=== PATIENT | female | born 1995 | race Native Hawaiian/Other Pacific Islander ===

== ENCOUNTER 2018-03-29 19:23 | Emergency (ER) | payer MEDICAID ==
[2018-03-29 20:16] LABS: Basophils % (Auto) 0.4 % (0.0-1.8); Eosinophils # (Auto) 0.3 K/mm3 (0.0-0.4); Hematocrit 37.1 % (30.3-42.9); Hemoglobin 12.4 gm/dl (10.1-14.3); Lymphocytes # (Auto) 1.9 K/mm3 (1.2-5.4); Lymphocytes % (Auto) 19.5 % (13.4-35.0); Mean Corpuscular HGB Conc 33 % (30-34); Mean Corpuscular Hemoglobin 31 pg (28-32); Mean Corpuscular Volume 92 fl (79-97); Monocytes # (Auto) 0.7 K/mm3 (0.0-0.8); Monocytes % (Auto) 7.4 % (0.0-7.3); Platelet Count 218 K/mm3 (140-440); Red Blood Count 4.02 M/mm3 (3.65-5.03); Red Cell Distribution Width 13.9 % (13.2-15.2)
[2018-03-29 20:34] LABS: Alanine Aminotransferase 10 units/L (7-56); BUN/Creatinine Ratio 23; Blood Urea Nitrogen 9 mg/dL (7-17); Hemolysis Index 3
[2018-03-29 20:54] LABS: HCG Qualitative,Urine Positive (Negative)
[2018-03-29 20:56] LABS: Bilirubin,Urine NEG (Negative); Blood,Urine NEG (Negative); Color,Urine Yellow (Yellow); Mucus,Urine 3+ /HPF; Renal Epithelial Cells,Urine 1 /LPF; Urobilinogen,Urine < 2.0 mg/dL (<2.0)
[2018-03-30] MEDS ORDERED: MACROBID PO ONE (04:12)
--- NOTE | 2018-03-30 04:17 | Emergency Department Report ---
ED General Adult HPI - General Chief complaint: Weakness Stated complaint: SOB Time Seen by Provider: 03/30/18 02:34 Source: patient Mode of arrival: Ambulatory Limitations: No Limitations - History of Present Illness Initial comments: Previously healthy 22-year-old woman presents with 1-2 week history of multiple complaints, but primarily fatigue, nausea and vomiting, lack of active tight, occasional difficulty breathing. She is felt like she's had an internal fever, but has no focal source of illness, including no sore throat, no upper respiratory symptoms, no cough or congestion, no abdominal pain, no nausea or vomiting, no diarrhea, and no dysuria. She reports that she has irregular menstrual cycle, and it does not concern her that her last period was 5 months ago. She also uses contraception, but also reports that she has not been sexually active over the past 5-7 months, and does not feel that is possible that she could be . He's been in good general health otherwise, and has no other additional symptoms. - Related Data Home Medications Medication Instructions Recorded Confirmed Last Taken Sertraline [Zoloft] 50 mg PO QDAY 01/07/18 01/07/18 Unknown hydrOXYzine PAMOATE [Vistaril] 25 mg PO Q6HR PRN 01/07/18 01/07/18 Unknown Previous Rx's Medication Instructions Recorded Last Taken Type levETIRAcetam [Keppra TAB] 750 mg PO BID #60 tablet 01/10/18 Unknown Rx Nitrofurantoin Monohyd/M-Cryst 100 mg PO BID #14 capsule 03/30/18 Unknown Rx [Macrobid 100 mg Capsule] Allergies Allergy/AdvReac Type Severity Reaction Status Date / Time latex Allergy Rash Verified 03/29/18 19:53 ED Review of Systems ROS: Stated complaint: SOB Other details as noted in HPI ED Past Medical Hx - Past Medical History Hx Congestive Heart Failure: No Hx Diabetes: No Hx Seizures: Yes (distant history, long period without seizures, no current seizure medicatio) Hx Psychiatric Treatment: Yes (anxiety) Hx Asthma: No Hx COPD: No Additional medical history: irregular heartbeat - Surgical History Past Surgical History?: No - Social History Smoking Status: Never Smoker Substance Use Type: None - Medications Home Medications: Home Medications Medication Instructions Recorded Confirmed Last Taken Type Sertraline [Zoloft] 50 mg PO QDAY 01/07/18 01/07/18 Unknown History hydrOXYzine PAMOATE [Vistaril] 25 mg PO Q6HR PRN 01/07/18 01/07/18 Unknown History levETIRAcetam [Keppra TAB] 750 mg PO BID #60 tablet 01/10/18 Unknown Rx Nitrofurantoin Monohyd/M-Cryst 100 mg PO BID #14 capsule 03/30/18 Unknown Rx [Macrobid 100 mg Capsule] ED Physical Exam - General Limitations: No Limitations ED Course Vital Signs 03/29/18 03/30/18 19:53 01:48 Temperature 37.1 C Pulse Rate 67 Respiratory 16 18 Rate Blood Pressure 95/51 O2 Sat by Pulse 100 99 Oximetry ED Medical Decision Making - Lab Data Result diagrams: 03/29/18 20:08 03/29/18 20:08 - Medical Decision Making Patient has urinary tract infection, but she also has a positive test , this by reporting that she is not sexually active, and could not possibly be , but does not feel that she is . Although serum test and transvaginal ultrasound could resolve this, patient declined both test , prefers to leave, will accept treatment for urinary tract infection, but will have follow-up examination with her physician in the next few days. Although I recommended patient stay, that she have definitive testing, she is clinically stable, and she is clinically calm, and can refuse additional testing , and can make her own arrangements for confirmation elsewhere. 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 Critical Care Time: No Critical care attestation.: If time is entered above; I have spent that time in minutes in the direct care of this critically ill patient, excluding procedure time. ED Disposition Clinical Impression: Positive test Urinary tract infection Qualifiers: Urinary tract infection type: acute cystitis Hematuria presence: without hematuria Qualified Code(s): N30.00 - Acute cystitis without hematuria Disposition: TO HOME OR SELFCARE Is pt being admited?: No Does the pt Need Aspirin: No Condition: Stable Instructions: Urinary Tract Infection in Women (ED) Additional Instructions: Your test was positive today, and recommended that you have ultrasound examination to confirm whether there is indeed a or not. Serum blood tests and ultrasound were recommended here, but she declined both of these, which were stable, and can have follow-up evaluation at her sawmill manager office. We recommended she make contact with your doctor in the next day or 2, and have rapid follow-up examination for this. You also had a urinary tract infection, we'll treat with Macrobid, which she should take twice daily for the next week. Prescriptions: Nitrofurantoin Monohyd/M-Cryst [Macrobid 100 mg Capsule] 100 mg PO BID #14 capsule Referrals: PRIMARY CARE, [Primary Care Provider] - 3-5 Days Time of Disposition: 04:17
[2018-03-30 04:29] VITALS: BP 106/55
== END 2018-03-30 04:28 | disposition home or self-care (01) ==
LOC: ED 19:23
DX: O23.42 Unspecified infection of urinary tract in pregnancy, second trimester (principal); O99.342 Other mental disorders complicating pregnancy, second trimester; F41.9 Anxiety disorder, unspecified; Z3A.20 20 weeks gestation of pregnancy; Z91.040 Latex allergy status
CPT/HCPCS: 36415; 80048; 80053; 81001; 81025; 85025; 93005; 93010; 99284

== ENCOUNTER 2018-11-21 17:44 | Emergency (ER) | payer MEDICAID ==
[2018-11-21 17:56] VITALS: BP 118/80
--- NOTE | 2018-11-21 18:01 | Emergency Department Report ---
Chief Complaint: Seizure Stated Complaint: POSSIBLE SEIZURE Time Seen by Provider: 11/21/18 17:55 - HPI History of Present Illness: This is a 22 y.o. female that presents to ED after a seizure 1 hour ago. - ROS Review of Systems: Denies complaints - Exam Vital Signs: Vital Signs 11/21/18 17:54 Temperature 97.5 F L Pulse Rate 98 H Respiratory 18 Rate Blood Pressure 118/80 O2 Sat by Pulse 100 Oximetry MSE screening note: Focused history and physical exam performed. Due to findings the following was ordered: labs ordered, glucose 68 Fast track for further evaluation. ED Disposition for MSE Condition: Stable
[2018-11-21 18:45] LABS: Hematocrit 38.6 % (30.3-42.9); Hemoglobin 12.8 gm/dl (10.1-14.3); Mean Corpuscular HGB Conc 33 % (30-34); Mean Corpuscular Volume 91 fl (79-97); Platelet Count 259 K/mm3 (140-440); Red Blood Count 4.26 M/mm3 (3.65-5.03); Red Cell Distribution Width 14.6 % (13.2-15.2)
[2018-11-21 19:01] LABS: BUN/Creatinine Ratio 23; Blood Urea Nitrogen 14 mg/dL (7-17); Hemolysis Index 4
--- NOTE | 2018-11-21 20:49 | Emergency Department Report ---
ED Seizure HPI - General Chief Complaint: Seizure Stated Complaint: POSSIBLE SEIZURE Time Seen by Provider: 11/21/18 17:55 Source: patient Mode of arrival: Ambulatory Limitations: No Limitations - History of Present Illness Initial Comments: 22-year-old female with a history of seizure disorder states she is not on medication for about a week. Patient states today she was at the park running and thinks she had a seizure episode. Patient's immunization and she was sitting on the bandage. Patient did not have any bruising trauma injuries. Patient denies chest pain shortness of breath headache or any symptoms. MD Complaint: possible seizure -: hour(s) Description of Episode: other (patient is unsure if she had a seizure episode or not) -: second(s) Witnessed:: No Trauma: No Seizure History: known seizure disorder, other (ran out of medication a week ago) Place: street/outdoors (she states she was walking in a park and then shortly after that she was sitting on the bench) Possible Precipitating Event: none Associated Symptoms: denies: chest pain, confusion, cough, fever/chills, loss of appetite, rash, shortness of breath, syncope, shoulder dislocation Treatments Prior to Arrival: none - Related Data Home Medications Medication Instructions Recorded Confirmed Last Taken Sertraline [Zoloft] 50 mg PO QDAY 01/07/18 01/07/18 Unknown hydrOXYzine PAMOATE [Vistaril] 25 mg PO Q6HR PRN 01/07/18 01/07/18 Unknown Previous Rx's Medication Instructions Recorded Last Taken Type Nitrofurantoin Monohyd/M-Cryst 100 mg PO BID #14 capsule 03/30/18 Unknown Rx [Macrobid 100 mg Capsule] levETIRAcetam [Keppra TAB] 750 mg PO BID #60 tablet 11/21/18 Unknown Rx Allergies Allergy/AdvReac Type Severity Reaction Status Date / Time latex Allergy Rash Verified 03/29/18 19:53 ED Review of Systems ROS: Stated complaint: POSSIBLE SEIZURE Other details as noted in HPI Comment: All other systems reviewed and negative ED Past Medical Hx - Past Medical History Hx Congestive Heart Failure: No Hx Diabetes: No Hx Seizures: Yes (distant history, long period without seizures, no current seizure medicatio) Hx Psychiatric Treatment: Yes (anxiety) Hx Asthma: No Hx COPD: No Additional medical history: irregular heartbeat - Surgical History Past Surgical History?: No - Social History Smoking Status: Never Smoker Substance Use Type: None - Medications Home Medications: Home Medications Medication Instructions Recorded Confirmed Last Taken Type Sertraline [Zoloft] 50 mg PO QDAY 01/07/18 01/07/18 Unknown History hydrOXYzine PAMOATE [Vistaril] 25 mg PO Q6HR PRN 01/07/18 01/07/18 Unknown History Nitrofurantoin Monohyd/M-Cryst 100 mg PO BID #14 capsule 03/30/18 Unknown Rx [Macrobid 100 mg Capsule] levETIRAcetam [Keppra TAB] 750 mg PO BID #60 tablet 11/21/18 Unknown Rx ED Physical Exam - General Limitations: No Limitations General appearance: alert, in no apparent distress - Head Head exam: Present: atraumatic, normocephalic - Eye Eye exam: Present: normal appearance, PERRL Pupils: Present: normal accommodation - ENT ENT exam: Present: mucous membranes moist - Neck Neck exam: Present: normal inspection, full ROM. Absent: tenderness, lymphadenopathy - Respiratory Respiratory exam: Present: normal lung sounds bilaterally. Absent: respiratory distress, wheezes - Cardiovascular Cardiovascular Exam: Present: regular rate, normal rhythm. Absent: systolic murmur, diastolic murmur, rubs, gallop - GI/Abdominal GI/Abdominal exam: Present: soft, normal bowel sounds. Absent: distended, tenderness, guarding - Extremities Exam Extremities exam: Present: normal inspection - Back Exam Back exam: Present: normal inspection, full ROM. Absent: tenderness, CVA tenderness (R), CVA tenderness (L) - Neurological Exam Neurological exam: Present: alert, oriented X3, CN II-XII intact, normal gait - Expanded Neurological Exam Expanded Patient oriented to: Present: person, place, time Speech: Present: fluid speech Cranial nerves: Facial Sensation: Normal Cerebellar function: Finger to Nose: Normal, Heel to [place]: Normal Sensory exam: Upper Extremity Light Touch: Normal, Lower Extremity Light Touch: Normal Motor strength exam: RUE: 5, LUE: 5, RLE: 5, LLE: 5 DTR: knee (R): 2+, knee (L): 2+ Best Eye Response ([place]): (4) open spontaneously Best Motor Response ([place]): (6) obeys commands Best Verbal Response ([place]): (5) oriented [place] Total: 15 - Psychiatric Psychiatric exam: Present: normal affect, normal mood - Skin Skin exam: Present: warm, dry, intact, normal color. Absent: rash ED Course Vital Signs 11/21/18 17:54 Temperature 97.5 F L Pulse Rate 98 H Respiratory 18 Rate Blood Pressure 118/80 O2 Sat by Pulse 100 Oximetry ED Medical Decision Making - Lab Data Result diagrams: 11/21/18 18:25 11/21/18 18:25 - Medical Decision Making 22-year-old female presents with possible post seizure episode. Patient had no neurologic deficit upon evaluation. labwork is normal. Patient received 500 mg of Keppra prior to discharge. Discussed with patient. Patient's medication will be refill so patient can continue taking the medication. Patient denies any pain anywhere at the moment. She is neurologically intact with no neuro deficit Discussed the follow up with her primary care doctor. Critical care attestation.: If time is entered above; I have spent that time in minutes in the direct care of this critically ill patient, excluding procedure time. ED Disposition Clinical Impression: Seizure disorder Disposition: [id number] TO HOME OR SELFCARE Is pt being admited?: No Does the pt Need Aspirin: No Condition: Stable Instructions: Epilepsy (ED), Women and Epilepsy (ED) Additional Instructions: Make sure to follow up with the primary care physician as discussed. Take all your medications as you've been prescribed. If you have any worsening symptoms or develop new symptoms please return to ED immediately. Prescriptions: levETIRAcetam [Keppra TAB] 750 mg PO BID #60 tablet Referrals: ELOINA IYER MD [Primary Care Provider] - 3-5 Days Forms: Accompanied Note, Work/School Release Form(ED) Time of Disposition: 21:22
[2018-11-21 20:58] LABS: HCG Qualitative,Urine Negative (Negative)
[2018-11-21] MEDS ORDERED: KEPPRA PO ONE (21:27)
== END 2018-11-21 22:05 | disposition home or self-care (01) ==
LOC: ED 17:44
DX: G40.909 Epilepsy, unspecified, not intractable, without status epilepticus (principal); F41.9 Anxiety disorder, unspecified; Z79.899 Other long term (current) drug therapy; Z91.040 Latex allergy status
CPT/HCPCS: 36415; 80048; 81025; 82962; 85027